=== PATIENT | female | born 1945 | race Caucasian/White ===

== ENCOUNTER 2016-12-19 10:43 | Inpatient (IN) | payer MEDICARE, OTHER ==
[~2016-12-19] VITALS: Ht 172.7 cm; Wt 90.9 kg
[2016-12-19 11:00] LABS: HEMOGLOBIN 8.9 g/dL (11.7-16.4)
[2016-12-19] MEDS ORDERED: SODIUM CHLORIDE FLUSH 10ML SYR IVF ONE ×2 (11:00→15:30)
[2016-12-19] MEDS ORDERED: SODIUM CHLORIDE 0.9% 1,000ML IVBOLUS ONE (11:00)
[2016-12-19 11:14] LABS: ASPARTATE AMINO TRANSFERASE 181 U/L (15-37); BLOOD UREA NITROGEN 16 mg/dL (7-18)
[2016-12-19 11:16] LABS: ACETAMINOPHEN < 2 mcg/mL (10-30)
[2016-12-19] MEDS ORDERED: TRAM100T2 PO (12:07)
[2016-12-19] MEDS ORDERED: ASPIRIN 81 MG TABLET CHEW ONE (12:28)
[2016-12-19] MEDS ORDERED: ASPIRIN 81 MG TABLET CHEW PO ONE (12:30)
[2016-12-19] MEDS ORDERED: METRONIDAZOLE PMX 500MG/100ML 100 ML IV SCH (13:00)
[2016-12-19] MEDS ORDERED: LABETALOL 5MG/ML, 20ML IV PRN (13:00)
[2016-12-19] MEDS ORDERED: ONDANSETRON 2MG/ML, 2ML IVP PRN (13:00)
[2016-12-19] MEDS ORDERED: CEFTRIAXONE PMX 1GM/50ML 50 ML IV SCH (13:00)
[2016-12-19] MEDS ORDERED: ENOXAPARIN 40 MG/0.4 ML SQ SCH (13:00)
[2016-12-19] MEDS ORDERED: ENALAPRILAT 1.25 MG/ML, 2ML IVPush PRN (13:00)
[2016-12-19] MEDS ORDERED: MAGNESIUM SULFATE PMX 2GM/50ML 50 ML IV ONE (13:00)
[2016-12-19 13:35] LABS: IS PT STATUS REG ER OR PRE ER? YES
[2016-12-19] MEDS ORDERED: HEPARIN wt. based STROKE protocol IV PRN (14:00)
[2016-12-19] MEDS ORDERED: DO NOT GIVE XX PRN (14:00)
[2016-12-19] MEDS ORDERED: HEPARIN 25,000 UNITS/500ML PMX 500 ML ONE (14:17)
[2016-12-19] MEDS ORDERED: CEFTRIAXONE PMX 1GM/50ML 50 ML ONE (14:22)
[2016-12-19] MEDS ORDERED: HEPARIN 25,000 UNITS/500ML PMX 500 ML IV PRN ×3 (14:30→16:00)
[2016-12-19 16:00] VITALS: BP 115/63
[2016-12-19 16:12] VITALS: BP 121/85
[2016-12-19] MEDS: SODIUM CHLORIDE 0.9% 1,000 ML IV SCH (18:26)
[2016-12-19] MEDS: GENTAMICIN 160 MG in SODIUM CHLORIDE 0.9% 50 ML IV SCH (18:28)
[2016-12-19 18:49] LABS: IS PT STATUS REG ER OR PRE ER? NO
[2016-12-19] MEDS: DAPTOMYCIN 425 MG in SODIUM CHLORIDE 0.9% 100 ML IVPB SCH (19:52)
[2016-12-19 23:15] LABS: DAU SCREEN DISCLAIMER
[2016-12-19 23:32] LABS: ICTOTEST POSITIVE
[2016-12-20] VITALS (9 sets, daily range): BP systolic 97–111; BP diastolic 51–69
[2016-12-20] MEDS: GENTAMICIN 160 MG in SODIUM CHLORIDE 0.9% 50 ML IV SCH ×2 (04:07→16:37)
[2016-12-20] MEDS: SODIUM CHLORIDE 0.9% 1,000 ML IV SCH ×2 (04:07→14:39)
[2016-12-20] MEDS: MORPHINE SULFATE 4 MG/ML, 1ML IVPush PRN ×2 (05:16→20:18)
[2016-12-20 05:56] LABS: ASPARTATE AMINO TRANSFERASE 198 U/L (15-37); BLOOD UREA NITROGEN 21 mg/dL (7-18); TOTAL IRON BINDING CAPACITY 290 mcg/dL (250-450)
[2016-12-20 07:10] LABS: HEPATITIS C VIRUS ANTIBODY Nonreactive (Nonreactive)
[2016-12-20] MEDS: DAPTOMYCIN 425 MG in SODIUM CHLORIDE 0.9% 100 ML IVPB SCH (17:26)
[2016-12-20 18:30] LABS: ABG COLLECTION SITE RIGHT BRACHIAL
[2016-12-21] MEDS: ACETAMINOPHEN 650 MG SUPP PR PRN (01:30)
[2016-12-21] MEDS: SODIUM CHLORIDE 0.9% 1,000 ML IV SCH ×3 (03:13→23:00)
[2016-12-21 04:27] LABS: HEMOGLOBIN 7.4 g/dL (11.7-16.4)
[2016-12-21 04:38] LABS: ASPARTATE AMINO TRANSFERASE 88 U/L (15-37); BLOOD UREA NITROGEN 21 mg/dL (7-18)
[2016-12-21] MEDS: GENTAMICIN 160 MG in SODIUM CHLORIDE 0.9% 50 ML IV SCH ×2 (04:41→16:24)
[2016-12-21] MEDS ORDERED: BUPIVACAINE/PF-EPI 0.5% 1:200K ONE (08:19)
[2016-12-21] MEDS ORDERED: POTASSIUM CHLORIDE 10 MEQ TABLET.ER PO ONE (16:00)
[2016-12-21] MEDS ORDERED: FUROSEMIDE 20 MG/2 ML IV ONE (16:00)
[2016-12-21 17:53] LABS: IS PT STATUS REG ER OR PRE ER? NO
[2016-12-21 19:15] VITALS: BP 126/68
[2016-12-21 20:42] VITALS: BP 138/86
[2016-12-21] MEDS: MORPHINE SULFATE 4 MG/ML, 1ML IVPush PRN (21:24)
[2016-12-21] MEDS: DAPTOMYCIN 425 MG in SODIUM CHLORIDE 0.9% 100 ML IVPB SCH (21:41)
[2016-12-22] MEDS: ACETAMINOPHEN 650 MG SUPP PR PRN ×2 (00:05→23:02)
[2016-12-22] MEDS: GENTAMICIN 160 MG in SODIUM CHLORIDE 0.9% 50 ML IV SCH ×2 (04:53→17:44)
[2016-12-22 07:25] LABS: HEMOGLOBIN 9.5 g/dL (11.7-16.4)
[2016-12-22 07:41] LABS: DIFF TOTAL CELLS COUNTED 100 CELL DIFF
[2016-12-22 07:43] LABS: ANISOCYTOSIS 1+; MICROCYTOSIS 1+; VERIFY COUNTS? YES
[2016-12-22 07:48] LABS: BLOOD UREA NITROGEN 15 mg/dL (7-18)
[2016-12-22] MEDS ORDERED: POTASSIUM CHLORIDE 10% 40 MEQ/30 ML UDC PO ONE (09:30)
[2016-12-22] MEDS: SODIUM CHLORIDE 0.9% 1,000 ML IV SCH (11:00)
[2016-12-22] MEDS: CEFTRIAXONE PMX 2GM/50ML 50 ML IV SCH (16:00)
[2016-12-22] MEDS: METOPROLOL TARTRATE 25 MG TABLET PO SCH (17:50)
[2016-12-22] MEDS: MORPHINE SULFATE 4 MG/ML, 1ML IVPush PRN (23:02)
[2016-12-23] MEDS: SODIUM CHLORIDE 0.9% 1,000 ML IV SCH ×3 (01:59→20:47)
[2016-12-23] MEDS: MORPHINE SULFATE 4 MG/ML, 1ML IVPush PRN ×2 (02:05→22:36)
[2016-12-23] MEDS: METOPROLOL TARTRATE 25 MG TABLET PO SCH ×2 (06:01→17:51)
[2016-12-23] MEDS: GENTAMICIN 160 MG in SODIUM CHLORIDE 0.9% 50 ML IV SCH ×2 (06:01→17:49)
[2016-12-23] MEDS ORDERED: POTASSIUM CHLORIDE 10% 40 MEQ/30 ML UDC PO ONE (07:30)
[2016-12-23] MEDS: CEFTRIAXONE PMX 2GM/50ML 50 ML IV SCH (16:00)
[2016-12-23] MEDS: ATORVASTATIN 20 MG TABLET PO SCH (20:47)
[2016-12-23] MEDS: ACETAMINOPHEN 650 MG SUPP PR PRN (22:35)
[2016-12-24] MEDS: MORPHINE SULFATE 4 MG/ML, 1ML IVPush PRN (03:45)
[2016-12-24 04:00] VITALS: BP 123/75
[2016-12-24] MEDS: GENTAMICIN 160 MG in SODIUM CHLORIDE 0.9% 50 ML IV SCH ×2 (04:51→18:15)
[2016-12-24] MEDS: METOPROLOL TARTRATE 25 MG TABLET PO SCH ×2 (04:51→18:15)
[2016-12-24 08:13] LABS: HEMOGLOBIN 9.7 g/dL (11.7-16.4)
[2016-12-24 08:26] LABS: BLOOD UREA NITROGEN 22 mg/dL (7-18)
[2016-12-24 08:43] LABS: ANISOCYTOSIS 2+; MICROCYTOSIS 1+; OVALOCYTES 1+; POLYCHROMASIA 1+
[2016-12-24 09:44] VITALS: BP 99/68
[2016-12-24] MEDS: SODIUM CHLORIDE 0.9% 1,000 ML IV SCH ×2 (09:45→23:20)
[2016-12-24 14:00] VITALS: BP 138/67
[2016-12-24] MEDS: ACETAMINOPHEN 650 MG SUPP PR PRN (16:37)
[2016-12-24] MEDS: CEFTRIAXONE PMX 2GM/50ML 50 ML IV SCH (16:37)
[2016-12-24 19:47] VITALS: BP 137/81
[2016-12-24] MEDS: ATORVASTATIN 20 MG TABLET PO SCH (23:20)
[2016-12-25 01:49] VITALS: BP 132/77
[2016-12-25] MEDS: GENTAMICIN 160 MG in SODIUM CHLORIDE 0.9% 50 ML IV SCH (06:17)
[2016-12-25] MEDS: METOPROLOL TARTRATE 25 MG TABLET PO SCH (06:23)
[2016-12-25 06:45] VITALS: BP 118/78
[2016-12-25] MEDS ORDERED: SODIUM CHLORIDE 0.9% 1,000ML IVBOLUS ONE (09:30)
[2016-12-25 10:11] LABS: ABG COLLECTION SITE LEFT BRACHIAL
[2016-12-25 11:17] LABS: BLOOD UREA NITROGEN 28 mg/dL (7-18)
[2016-12-25 11:21] LABS: ASPARTATE AMINO TRANSFERASE 254 U/L (15-37)
[2016-12-25 11:23] LABS: IS PT STATUS REG ER OR PRE ER? NO
[2016-12-25] MEDS ORDERED: MORPHINE SULFATE IVPB PRN (12:30)
[2016-12-25] MEDS ORDERED: LORazepam 2 MG/ML, 1ML IVPush PRN (12:30)
[2016-12-25] MEDS ORDERED: SODIUM CHLORIDE 0.9% IVPB PRN (12:30)
[2016-12-25 12:35] LABS: HEMOGLOBIN 10.9 g/dL (11.7-16.4)
[2016-12-25] MEDS: MORPHINE SULFATE 4 MG/ML, 1ML IVPush PRN (12:43)
== END 2016-12-25 17:03 | disposition expired | DRG 871 ==
LOC: ED 12:31 → EDIP 12:32 → ED 13:01 → 5SO 15:49 → ICU 17:10 → 5SO 12-24 19:40 → ICU 12-25 09:52 → 3NW 12-25 13:30
PROVIDERS: ADMIT Internal Medicine; ATTEND Internal Medicine
PROC: 0T9B70Z Drainage of Bladder with Drainage Device, Via Natural or Artificial Opening (ICD-10-PCS; 2016-12-19)
PROC: 30233N1 Transfusion of Nonautologous Red Blood Cells into Peripheral Vein, Percutaneous Approach (ICD-10-PCS; principal; 2016-12-21)
PROC: 02HV33Z Insertion of Infusion Device into Superior Vena Cava, Percutaneous Approach (ICD-10-PCS; 2016-12-22)
PROC: B548ZZA Ultrasonography of Superior Vena Cava, Guidance (ICD-10-PCS; 2016-12-22)
DX: A41.9 Sepsis, unspecified organism (principal); G93.41 Metabolic encephalopathy; J69.0 Pneumonitis due to inhalation of food and vomit; E43 Unspecified severe protein-calorie malnutrition; I21.4 Non-ST elevation (NSTEMI) myocardial infarction; J96.00 Acute respiratory failure, unspecified whether with hypoxia or hypercapnia; I63.40 Cerebral infarction due to embolism of unspecified cerebral artery; E87.1 Hypo-osmolality and hyponatremia; E87.2 Acidosis; I76 Septic arterial embolism; I50.40 Unspecified combined systolic (congestive) and diastolic (congestive) heart failure; R47.01 Aphasia; D50.9 Iron deficiency anemia, unspecified; R73.9 Hyperglycemia, unspecified; S00.03XA Contusion of scalp, initial encounter; S42.002A Fracture of unspecified part of left clavicle, initial encounter for closed fracture; R16.1 Splenomegaly, not elsewhere classified; B95.4 Other streptococcus as the cause of diseases classified elsewhere; W19.XXXA Unspecified fall, initial encounter; N28.1 Cyst of kidney, acquired; Z96.642 Presence of left artificial hip joint; Z68.30 Body mass index [BMI] 30.0-30.9, adult; Z51.5 Encounter for palliative care; I27.2 Other secondary pulmonary hypertension
CPT/HCPCS: 36415; 36569; 36600; 70450; 70486; 70551; 71010; 72125; 74000; 76700; 76937; 77001; 80047; 80048; 80053; 80061; 80074; 80307; 80329; 81001; 82140; 82550; 82607; 82803; 82962; 83036; 83540; 83550; 83735; 83880; 84443; 84484; 85025; 85520; 85610; 85651; 85730; 86850; 86870; 86900; 86922; 86923; 87040; 87077; 87081; 87086; 87181; 93005; 93306; 93880; 95819; 99285; J0696; J0878; J1644; 92523-GN; C1751; G0480; J1580; J1940; J2060; J2270; J3475; J7050; P9016